=== PATIENT | male | born 1970 | race Caucasian/White ===

== ENCOUNTER 2019-09-21 08:47 | Day surgery (SDC) | payer BC ==
[~2019-09-21 08:47] MED LIST: Midazolam 1 MG/ML 2 ML SDV ONE; Propofol 200 MG/20 ML SDV ONE
[2019-09-21] MEDS ORDERED: Sodium Chloride 0.9% 10 ML Syringe FLUSH PRN (09:00)
[2019-09-21] MEDS ORDERED: Lactated Ringers 1,000 ML IV SCH (09:00)
[2019-09-21] MEDS ORDERED: Propofol 200 MG/20 ML SDV ONE ×2 (10:02→10:06)
[2019-09-21] MEDS ORDERED: Midazolam 1 MG/ML 2 ML SDV ONE (10:02)
--- NOTE | 2019-09-21 10:13 | PCM.PN ---
- General Info Date of Service: 09/21/19 - Review of Systems Systems Review Comment:: 49 y/o male here for screening colonoscopy. He has never had previous colonoscopy. He has a family history of colon cancer in both of his paternal grandparents. He denies any recent change in bowel pattern except for some loose stools secondary to metformin. He is medically stable to proceed today. His recent history and physical is reviewed and no significant changes are noted. I have discussed the proposed colonoscopy with the patient. Risks such as but not limited to bleeding and GI injury reviewed. He agrees to proceed. - Patient Data Vitals - Most Recent: Last Vital Signs Temp 97.8 F 09/21/19 09:28 Pulse 102 H 09/21/19 09:28 Resp 18 09/21/19 09:28 BP 130/96 H 09/21/19 09:28 Pulse Ox 97 09/21/19 09:28 Weight - Most Recent: 101.605 kg Lab Results Last 24 Hours: Laboratory Results - last 24 hr 09/21/19 Range/Units 09:36 POC Glucose 141 H (65-110) mg/dl Med Orders - Current: Current Medications Lactated Ringer's (Ringers, Lactated) 1,000 mls @ 125 mls/hr IV ASDIRECTED MURIEL Last Admin: 09/21/19 09:28 Dose: 125 mls/hr Sodium Chloride (Saline Flush) 10 ml FLUSH ASDIRECTED PRN PRN Reason: Keep Vein Open Discontinued Medications Midazolam HCl (Versed 1 Mg/Ml) Confirm Administered Dose 2 mg .ROUTE .STK-MED ONE Stop: 09/21/19 08:39 Propofol (Diprivan 20 Ml) Confirm Administered Dose 200 mg .ROUTE .STK-MED ONE Stop: 09/21/19 08:39 Propofol (Diprivan 20 Ml) Confirm Administered Dose 200 mg .ROUTE .STK-MED ONE Stop: 09/21/19 10:07 - Problem List Review Problem List Initiated/Reviewed/Updated: Yes - My Orders Last 24 Hours: My Active Orders 09/21/19 09:00 Patient Status [ADT] Routine Blood Glucose Check, Bedside [RC] ONETIME Peripheral IV Care [RC] . DIRECTED Verify Patient Consent Obtain [RC] ASDIRECTED Lactated Ringers [Ringers, Lactated] 1,000 ml IV ASDIRECTED Sodium Chloride 0.9% [Saline Flush] 10 ml FLUSH ASDIRECTED PRN Peripheral IV Insertion Adult [OM.PC] Routine - Assessment Assessment:: colon cancer screening - Plan Plan:: colonoscopy
--- NOTE | 2019-09-21 10:55 | PCM.OPNOTE ---
- General Post-Op/Procedure Note Date of Surgery/Procedure: 09/21/19 Operative Procedure(s): colonoscopy with polypectomy Findings: 2 polyps in the mid colon Pre Op Diagnosis: colon cancer screening Post-Op Diagnosis: colon polyps Anesthesia Technique: MAC Primary Surgeon: Ted Wagner Pathology: colon polyps EBL in mLs: 0 Complications: None Condition: Good
[2019-09-21 13:42] VITALS: BP 127/86; PULSE 75
--- NOTE | 2019-09-21 15:00 | OR ---
Date of Procedure: 09/21/2019 PREOPERATIVE DIAGNOSIS: Colon cancer screening. POSTOPERATIVE DIAGNOSIS: Colon polyps. OPERATION PERFORMED: Colonoscopy with polypectomy. INDICATIONS FOR SURGERY: This 49-year-old male was referred for his initial screening colonoscopy. He does have a family history in multiple grandparents. FINDINGS: Two polyps were noted on today's exam. A 4 mm sessile polyp was noted in the distal transverse colon and a 9 mm sessile polyp was noted in the region of the splenic flexure. The remainder of the colon appears normal. DESCRIPTION OF PROCEDURE: The patient was taken to the operating room. He was given intravenous sedation and with him in the left lateral decubitus position, digital rectal exam was performed showing no rectal masses. The Olympus colonoscope was inserted into the rectum. Retroflexed examination of the rectal canal was performed. The scope was then carefully advanced under direct visualization through the entire length of the colon until the cecum was reached. Cecal acquisition was confirmed by noting the normal internal cecal anatomy including the appendiceal orifice and ileocecal valve. The light was noted to transilluminate the abdominal wall in the right lower quadrant. The ileocecal valve was cannulated and the terminal ileum examined. The scope was then slowly withdrawn sequentially re-examining the colonic segments. During insertion and withdrawal of the scope, the above-described polyps were identified. As they are encountered, each one is removed with a cautery snare and retrieved. After the exam had been completed and with no sign of any bleeding or complications, the scope was removed and the patient was taken from the operating room in satisfactory condition. ESTIMATED BLOOD LOSS: 0. COMPLICATIONS: None. PROGNOSIS: Good. TY Wagner MD /[id number]
== END 2019-09-21 11:57 | disposition home or self-care (01) ==
LOC: LL.SDS 08:47
PROVIDERS: ATTEND Surgery
DX: Z12.11 Encounter for screening for malignant neoplasm of colon (principal); D12.3 Benign neoplasm of transverse colon; I10 Essential (primary) hypertension; E11.9 Type 2 diabetes mellitus without complications; E78.5 Hyperlipidemia, unspecified; E66.01 Morbid (severe) obesity due to excess calories; Z88.1 Allergy status to other antibiotic agents; Z88.8 Allergy status to other drugs, medicaments and biological substances; Z68.39 Body mass index [BMI] 39.0-39.9, adult; Z87.891 Personal history of nicotine dependence; Z79.84 Long term (current) use of oral hypoglycemic drugs; Z79.899 Other long term (current) drug therapy
CPT/HCPCS: 00812; 45385; 82962; J2250; J2704; J7120

== ENCOUNTER 2023-04-15 09:54 | Day surgery (SDC) | payer BC ==
[~2023-04-15 09:54] MED LIST changes: -Midazolam 1 MG/ML 2 ML SDV ONE
[2023-04-15] MEDS ORDERED: Sodium Chloride 0.9% 10 ML Syringe FLUSH PRN (10:00)
[2023-04-15] MEDS ORDERED: Lactated Ringers 1,000 ML IV SCH (10:00)
[2023-04-15 12:34] VITALS: BP 122/83; PULSE 83
== END 2023-04-15 12:49 | disposition home or self-care (01) ==
LOC: LL.SDS 09:54
PROVIDERS: ATTEND Surgery
DX: Z12.11 Encounter for screening for malignant neoplasm of colon (principal); D12.0 Benign neoplasm of cecum; D12.3 Benign neoplasm of transverse colon; I10 Essential (primary) hypertension; E11.9 Type 2 diabetes mellitus without complications; F90.9 Attention-deficit hyperactivity disorder, unspecified type; F41.9 Anxiety disorder, unspecified; F33.9 Major depressive disorder, recurrent, unspecified; E78.5 Hyperlipidemia, unspecified; Z86.010 Personal history of colon polyps; Z98.890 Other specified postprocedural states; Z79.899 Other long term (current) drug therapy; Z88.8 Allergy status to other drugs, medicaments and biological substances; Z88.1 Allergy status to other antibiotic agents; Z88.6 Allergy status to analgesic agent; Z87.891 Personal history of nicotine dependence; Z86.16 Personal history of COVID-19
CPT/HCPCS: 00812; J2704; J7120

== ENCOUNTER 2024-06-18 06:29 | Emergency (ER) | payer BC ==
[2024-06-18] MEDS ORDERED: Sodium Chloride 0.9% 10 ML Syringe FLUSH PRN (06:45)
[2024-06-18 06:54] LABS: BASOPHILS ABSOLUTE AUTO 0.02 K/uL (0.00-0.20); BASOPHILS PERCENT AUTO 0.2 % (0.0-2.0); HEMATOCRIT 42.5 % (39.0-49.0); HEMOGLOBIN 14.5 g/dL (13.1-16.8); LYMPHOCYTES ABSOLUTE AUTO 4.44 K/uL (0.50-3.50); LYMPHOCYTES PERCENT AUTO 43.4 % (10.0-50.0); MEAN CORPUSCULAR HEMOGLOBIN 31.6 pg (28.2-33.3); MEAN CORPUSCULAR HGB CONC 34.1 g/dL (31.7-36.0); MEAN CORPUSCULAR VOLUME 92.6 fL (84.0-98.0); MONOCYTES ABSOLUTE AUTO 0.88 K/uL (0.00-1.00); MONOCYTES PERCENT AUTO 8.6 % (2.0-14.0); NEUTROPHILS ABSOLUTE AUTO 4.78 K/uL (1.40-7.00); NEUTROPHILS PERCENT AUTO 46.8 % (45.0-80.0); PLATELET COUNT,PLT 243 K/uL (150-350); RED BLOOD CELL COUNT 4.59 M/uL (4.33-5.41); RED CELL DISTRIBUTION WIDTH 13.7 % (11.2-14.1); WHITE BLOOD CELL COUNT,WBC 10.2 K/uL (4.0-10.2)
[2024-06-18] MEDS ORDERED: Glucagon,Human Recombinant 1 MG Vial IM PRN (07:01)
[2024-06-18] MEDS ORDERED: 50% Dextrose in Water 50 ML Syringe IVPUSH PRN (07:01)
[2024-06-18] MEDS: Lactated Ringers 1,000 ML IV ONE (07:03)
[2024-06-18] MEDS: Insulin Regular, Human 100 Units/ML 3 ML Vial SUBCUT ONE (07:05)
[2024-06-18 07:22] LABS: APPEARANCE,URINE CLEAR; BILIRUBIN,URINE NEGATIVE (NEGATIVE); COLOR,URINE YELLOW; GLUCOSE,URINE >=1000 mg/dL (NEGATIVE); KETONES,URINE 15 mg/dL (NEGATIVE); LEUKOCYTE ESTERASE,URINE NEGATIVE (NEGATIVE); NITRITE,URINE NEGATIVE (NEGATIVE); OCCULT BLOOD,URINE NEGATIVE (NEGATIVE); PH,URINE 5.5 (5.0-9.0); PROTEIN,URINE NEGATIVE (NEGATIVE); UROBILINOGEN,URINE 0.2 E.U./dL (0.2-1.0)
[2024-06-18 07:22] LABS: ALANINE AMINOTRANSFERASE,ALT 71 U/L (12-78); ALBUMIN 4.1 g/dL (3.4-5.0); ALKALINE PHOSPHATASE 106 IU/L (46-116); ASPARTATE AMNIOTRANSFERASE,AST 30 U/L (15-37); BILIRUBIN TOTAL 0.7 mg/dL (0.2-1.0); BLOOD UREA NITROGEN,BUN 14 mg/dL (7-18); CALCIUM 9.3 mg/dL (8.5-10.1); CARBON DIOXIDE,CO2 21.1 mmol/L (21.0-32.0); CHLORIDE,CL 99 mmol/L (98-107); CREATININE 1.23 mg/dL (0.51-1.17); PROTEIN TOTAL,TP 7.7 g/dL (6.4-8.2); SODIUM,NA 141 mmol/L (136-145)
[2024-06-18 07:25] LABS: ANION GAP 23.9 meq/L (7-15)
[2024-06-18 07:26] LABS: ESTIMATED GFR 70 mL/min (>=60); GLUCOSE RANDOM 404 mg/dL (70-99)
[2024-06-18] MEDS: Aspirin 81 MG Tab.Chew PO ONE (07:31)
[2024-06-18 07:33] LABS: HEMOGLOBIN A1C 6.4 % (4.3-5.7)
[2024-06-18] MEDS: Aspirin 81 MG Tab.Chew ONE (07:44)
[2024-06-18] MEDS: Potassium Chloride 20 MEQ Tab.ER PO ONE ×2 (08:03→08:06)
[2024-06-18] MEDS: Sodium Chloride 0.9% 1,000 ML IV ONE (08:04)
[2024-06-18 09:33] LABS: PRO B-TYPE NATRIUR PEPT,BNPPRO 16 pg/mL (0-125)
[2024-06-18 10:39] VITALS: BP 112/69; PULSE 91
== END 2024-06-18 09:40 ==
LOC: LL.ED 06:29
DX: R55 Syncope and collapse (principal); E11.649 Type 2 diabetes mellitus with hypoglycemia without coma; R77.8 Other specified abnormalities of plasma proteins; E66.9 Obesity, unspecified; Z68.38 Body mass index [BMI] 38.0-38.9, adult; K21.9 Gastro-esophageal reflux disease without esophagitis; E78.00 Pure hypercholesterolemia, unspecified; F17.210 Nicotine dependence, cigarettes, uncomplicated; Z79.899 Other long term (current) drug therapy; Z79.82 Long term (current) use of aspirin; Z88.8 Allergy status to other drugs, medicaments and biological substances; Z88.1 Allergy status to other antibiotic agents
CPT/HCPCS: 36415; 71045; 80053; 81003; 82009; 82947; 83036; 83605; 83735; 83880; 84484; 85025; 93005; 96360; 96361; 99285; A9270; J1815; J7030; J7120